=== PATIENT | male | born 1975 | race Caucasian/White ===

== ENCOUNTER 2024-02-24 20:00 | Outpatient (CLI) | payer BC, SELFPAY | END 2024-02-24 20:01 | disposition home or self-care (01) | LOC: SLEEP 02-25 06:52 | PROVIDERS: PCP Internal Medicine; Visit Provider Nurse Practitioner Family | DX: G47.33 Obstructive sleep apnea (adult) (pediatric) (principal) | CPT/HCPCS: 95810 ==

== ENCOUNTER 2025-08-02 11:16 | Emergency (ER) | payer BC, SELFPAY ==
[2025-08-02 11:27] VITALS: BP 149/101; PULSE 65; RESP 16; TEMP 36.8; O2SAT 98; BMI 30.4
--- NOTE | 2025-08-02 11:35 | CT_ITS ---
WS: [id number] CT ABDOMEN AND PELVIS WITH CONTRAST HISTORY: acute onset periumbilical pin radiating inferiorly TECHNIQUE: Imaging performed of the abdomen and pelvis with IV contrast. Single phase imaging of the abdomen. Coronal and sagittal reformats are submitted. All CT scans at [facility] use at least one of these dose optimization techniques: automated exposure control; mA and/or kV adjustment per patient size (includes targeted exams where dose is matched to clinical indication); or iterative reconstruction. IV CONTRAST: Omnipaque 350; 100 mL IV. Oral contrast: No DLP: 762.00 mGy.cm COMPARISON: 07/23/2015 Lower thorax: Lung bases are clear. Heart is normal size. No hiatal hernia. Liver/biliary system: Normal size with no intrahepatic dilatation. Gallbladder: Normal. No gallstones or wall thickening. No pericholecystic fluid. Pancreas: Normal size pancreas and pancreatic duct. No adjacent inflammation. Spleen: Normal size spleen. No mass or infarct. Adrenal glands: Normal. Right kidney: Normal size kidney. 11 mm cortical cyst posterior upper pole. Minimal increase in size since 2014. No renal obstruction or calcifications. Left kidney: Normal. Aorta: Normal. Lymphadenopathy: None. Free fluid: None. GI tract: Nondistended stomach. No small bowel obstruction. Some of the small bowel loops do contain from previous fluid but there is no obstructive pattern. Normal appendix. Mild diverticulosis. Diverticulosis begins in the transverse colon and extends distally. There is mild narrowing of the lumen to the transverse colon. No colon mass is identified. There is no obvious diverticulosis although the narrows lumen which is new since 2015. Abdominal wall: Fat containing umbilical hernia. Pelvis: No free fluid or adenopathy within the pelvis. Bones: Unremarkable. CT/CT abdomen pelvis w con* [id number] IMPRESSION: 1. Normal appendix. 2. No renal obstruction or calcification. 3. Diverticulosis which has progressed since the prior study from 2014. No acu te diverticulitis identified. There is mild narrowing of the lumen in the trans verse colon associated with the diverticular disease. 4. Very small amount of increased fluid in the small bowel but no obstructive pattern. 5. No ascites.
--- NOTE | 2025-08-02 11:35 | ED_ITS ---
HPI - Abdominal Pain 2 General: Chief Complaint: Abdominal Pain Stated Complaint: Lower ABD Pain going down into bladder Time Seen by Provider: 08/02/25 11:26 History of Present Illness: Patient presenting to the emergency department with complaint of approximately 1 hour ago onset of severe periumbilical pain rating down to the suprapubic bladder region, 10 out of 10 in severity, no back or flank pain, no nausea or vomiting, normal bowel movement and normal urinnation occurred after onset of pain, history of kidney stones but this feels different per him, no history of intra-abdominal surgeries other than a vasectomy remotely, no testicular pain or swelling, no recent falls or trauma Related Data Previous Rx's ?Medication ?Instructions ?Recorded aluminum-mag hydroxide-simethicone 10 ml PO QID PRN pa in #200 mL 08/02/25 200 mg-200 mg-20 mg/5 mL oral susp (Maalox Advanced) famotidine 20 mg tablet (Pepcid) 20 mg PO BID #14 tabs 08/02/25 ibuprofen 600 mg tablet 600 mg PO Q6H PRN pain 7 day s #30 08/02/25 tabs Allergies Allergy/AdvReac Type Severity Reaction Status Date / Time No Known Allergies Allergy Verified 08/02/25 11:29 Physical Exam 2 Narrative: EXAM NARRATIVE: Gen: A&Ox4, no acute distress, nontoxic appearing HEENT: Normocephalic, atraumatic, no scleral icterus, external ears normal, moist mucous membranes Neck: Supple, full range of motion, no observable masses Lungs: No Respiratory distress, Lungs clear to auscultation bilaterally no rales, rhonchi, wheezing CV: Regular rate and rhythm, no murmur, no pitting edema to lower extremities bilaterally Abdomen: Soft, nondistended, tender to palpation to the periumbilical and suprapubic region, no right lower quadrant tenderness, no CVA tenderness bilaterally, no rigidity or rebound, positive guarding : Bilateral testes nontender or swollen bwith normal lie, no hernias, no scrotal erythema, normal cremasteric reflex, no penile discharge or lesions MSK: No joint swelling, FROM all 4 extremities Skin: No rashes, petechiae, lesions. Normal color per patient. Neuro: Alert and oriented, no slurred speech, sensation and strength grossly intact all 4 extremities Psych: Appropriate for situation. Course 2 Reevaluation(s): Reevaluation #1: Results of workup reassuring, CT with no significant abnormalities other than mild fluid in the small intestine possibly consistent with gastroenteritis although no evidence of bowel obstruction, there is some mild narrowing of the distal colon and worsening diverticulosis, patient reports having had a colonoscopy 2 years ago, recommend follow-up with PCP to assess for need for repeat colonoscopy to rule out malignancy although less likely given patient up-to-date on screening, recommend trial of supportive care with medications for pain, return precautions. No evidence of an emergency medical condition is present at the time of discharge Time: 12:56 Vital Signs: Vital signs: Vital Signs Temperature 98.3 F 08/02/25 11:27 Pulse Rate 51 L 08/02/25 12:43 Respiratory Rate 17 08/02/25 12:43 Blood Pressure 127/82 08/02/25 12:43 Pulse Oximetry 95 08/02/25 12:43 Oxygen Delivery Me thod Room Air 08/02/25 12:43 MDM - Abdominal Pain Medical Decision Making 50-year-old male medical history significant for spontaneously passed kidney stone and vasectomy otherwise generally healthy presenting with acute onset of severe 10 out of 10 mid to lower abdominal pain, normal urination, normal bowel movements, no vomiting, significantly tender without rigidity or rebound tenderness, stable vital signs, patient appears acutely uncomfortable, plan for pain control, fluids, urinalysis, labs, CT scan, reassess for disposition Differential Diagnosis Likely abdominal pain (appy, bowel obstruction, hernia incarcerated, kidney stone, malignancy, uti, testicular torsion highly unlikely clinically, gastritis, pancreatitis) Lab Data Labs showing no leukocytosis, normal electrolytes, normal kidney function, negative lipase, urinalysis no hematuria or evidence of UTI 08/02/25 11:41 08/02/25 11:41 Labs/Radiology: Radiology Impressions Abdomen/Pelvis CT 08/02/25 11:35 IMPRESSION: 1. Normal appendix. 2. No renal obstruction or calcification. 3. Diverticulosis which has progressed since the prior study from 2014. No acute diverticulitis identified. There is mild narrowing of the lumen in the transverse colon associated with the diverticular disease. 4. Very small amount of increased fluid in the small bowel but no obstructive pattern. 5. No ascites. Laboratory Results WBC 7.07 10^3/uL (3.29-11.43) 08/02/25 11:41 RBC 4.83 10^6/uL (3.85-5.65) 08/02/25 11:41 Hgb 14.50 g/dL (11.27-16.99) 08/02/25 11:41 Hct 43.1 % (37-53) 08/02/25 11:41 MCV 89.2 fl (82-101) 08/02/25 11:41 MCH 30.0 pg (27-33) 08/02/25 11:41 MCHC 33.6 g/dL (30-55) 08/02/25 11:41 RDW 13.2 % (12.1-15.1) 08/02/25 11:41 Plt Count 219 10^3/cmm (157-399) 08/02/25 11:41 MPV 10.6 fL (7.4-10.4) H 08/02/25 11:41 Neut % (Auto) 62.1 % 08/02/25 11:41 Lymph % (Auto) 28.6 % 08/02/25 11:41 [place] % (Auto) 8.1 % 08/02/25 11:41 Eos % (Auto) 0.7 % 08/02/25 11:41 Baso % (Auto) 0.4 % 08/02/25 11:41 Neut # (Auto) 4.39 10^3/uL (1.8-7.7) 08/02/25 11:41 Lymph # (Auto) 2.0 10^3/uL (0.8-4.8) 08/02/25 11:41 [place] # (Auto) 0.6 10^3/uL (0.2-0.9) 08/02/25 11:41 Eos # (Auto) 0.1 10^3/uL (0.0-0.8) 08/02/25 11:41 Baso # (Auto) 0.0 10^3/uL (0.0-0.1) 08/02/25 11:41 Nucleated RBC % (auto) 0 % 08/02/25 11:41 Nucleated RBCs # 0.0 /100WBC 08/02/25 11:41 Sodium 138 mmol/L (136-145) 08/02/25 11:41 Potassium 3.6 mmol/L (3.5-5.1) 08/02/25 11:41 Chloride 101 mmol/L (98-107) 08/02/25 11:41 Carbon Dioxide 19 mmol/L (22-29) L 08/02/25 11:41 Anion Gap 21.6 (5-19) H 08/02/25 11:41 BUN 17 mg/dL (6-20) 08/02/25 11:41 Creatinine 0.9 mg/dL (0.7-1.2) 08/02/25 11:41 GFR Calculation 90.1 mL/min (90-130) 08/02/25 11:41 Glucose 94 mg/dL (65-115) 08/02/25 11:41 Calculated Osmolality 287 mOsm/kg (285-295) 08/02/25 11:41 Calcium 9.0 mg/dL (8.5-10.5) 08/02/25 11:41 Total Bilirubin 0.4 mg/dL (0.15-1.2) 08/02/25 11:41 AST 21 U/L (0-40) 08/02/25 11:41 ALT 17 U/L (0-41) 08/02/25 11:41 Alkaline Phosphatase 70 U/L (40-130) 08/02/25 11:41 Total Protein 7.0 g/dL (6.6-8.7) 08/02/25 11:41 Albumin 4.4 g/dL (3.5-5.2) 08/02/25 11:41 Globulin 2.6 g/dL (1.3-4.6) 08/02/25 11:41 Lipase 33 U/L (13-60) 08/02/25 11:41 Urine Color Yellow (Yellow) 08/02/25 11:41 Urine Appearance Clear (CLEAR) 08/02/25 11:41 Urine pH 6.0 (5-7) 08/02/25 11:41 Ur Specific Leupp 1.021 (1.005-1.030) 08/02/25 11:41 Urine Protein Negative (Negative) 08/02/25 11:41 Urine Glucose (UA) Negative (Normal) 08/02/25 11:41 Urine Ketones 1+ (Negative) H 08/02/25 11:41 Urine Blood Negative (Negative) 08/02/25 11:41 Urine Nitrate Negative (Negative) 08/02/25 11:41 Urine Bilirubin Negative (Negative) 08/02/25 11:41 Urine Urobilinogen 1.0 mg/dL (Negative) 08/02/25 11:41 Ur Leukocyte Esterase Negative (Negative) 08/02/25 11:41 Urine RBC 0-2 /hpf (0-2) 08/02/25 11:41 Urine WBC 0-5 /hpf (0-5) 08/02/25 11:41 Ur Squamous Epith Cells 0-5 /hpf (0-5) 08/02/25 11:41 Amorphous Sediment Not Reportable 08/02/25 11:41 Urine Bacteria None seen /hpf (NONE) 08/02/25 11:41 Hyaline Casts 0.40 /lpf 08/02/25 11:41 All radiology interpretation(s) finalized by discharge ED provider radiology interpretation(s): CT abdomen pelvis with no significant acute abnormalities, does show possible fluid in the small intestine, there is some narrowing of the colon and diverticulosis Discharge Plan Discharge Patient Disposition: Home Condition: Stable Prescriptions: New famotidine [Pepcid] 20 mg tablet 20 mg PO BID Qty: 14 0RF ibuprofen 600 mg tablet 600 mg PO Q6H PRN (Reason: pain) 7 Days Qty: 30 0RF alum-mag hydroxide-simeth [Maalox Advanced] 200-200-20 mg/5 mL suspension 10 ml PO QID PRN (Reason: pain) Qty: 200 0RF Rx Instructions: administer between meals and at bedtime Discharge Orders: Discharge ED (Routine); Ordered 08/02/25 Ordered By: Indio Busch Referrals: Jennifer Torres MD [Primary Care Provider, Internal Medicine] Patient Instructions: Abdominal Pain (ED), Patient Portal & [place] Instructions Print Language: Vietnamese Coding Level of Care Code ED Fulfillment Coordinator for Estevan Forrest
[2025-08-02 11:45] VITALS: RESP 18
[2025-08-02] MEDS: morphine 4 mg/mL SDV 1 mL 6 MG IVP (11:45)
[2025-08-02 11:55] LABS: Hematocrit 43.1 % (37-53); Hemoglobin 14.50 g/dL (11.27-16.99); Mean Corpuscular HGB Conc 33.6 g/dL (30-55); Mean Corpuscular Hemoglobin 30.0 pg (27-33); Mean Corpuscular Volume 89.2 fl (82-101); Nucleated Red Blood Cells % 0 %; Platelet Count 219 10^3/cmm (157-399); Red Blood Count 4.83 10^6/uL (3.85-5.65); White Blood Count 7.07 10^3/uL (3.29-11.43)
[2025-08-02 11:58] LABS: Glucose Urine UA Negative (Normal); Nitrate Urine Negative (Negative); Specific Gravity, Urine 1.021 (1.005-1.030)
[2025-08-02] MEDS: iohexol 350 mg/mL 500 mL Btl (per mL) IV (12:01)
[2025-08-02 12:09] LABS: Alanine Aminotransferase 17 U/L (0-41); Albumin Level 4.4 g/dL (3.5-5.2); Alkaline Phosphatase 70 U/L (40-130); Anion Gap 21.6 (5-19); Aspartate Amino Transferase 21 U/L (0-40); Blood Urea Nitrogen 17 mg/dL (6-20); Calcium 9.0 mg/dL (8.5-10.5); Carbon Dioxide 19 mmol/L (22-29); Chloride 101 mmol/L (98-107); Creatinine Clr Calc Pharmacy 109.7855; Globulin 2.6 g/dL (1.3-4.6); Glucose 94 mg/dL (65-115); Lipase 33 U/L (13-60); Osmolality Calculated 287 mOsm/kg (285-295); Potassium 3.6 mmol/L (3.5-5.1); Sodium 138 mmol/L (136-145); Total Protein 7.0 g/dL (6.6-8.7)
[2025-08-02 12:43] VITALS: BP 127/82; PULSE 51; RESP 17; O2SAT 95
== END 2025-08-02 13:10 | disposition home or self-care (01) ==
PROVIDERS: Emergency Provider Student in an Organized Health Care Education/Training Program; PCP Internal Medicine
DX: R10.30 Lower abdominal pain, unspecified (principal)
CPT/HCPCS: 74177; 80053; 81001; 83690; 85025; 96374; 96375; 99285; J1885; J2270; J7030